=== PATIENT | female | born 1975 | race Caucasian/White ===

== ENCOUNTER 2016-05-30 12:03 | Emergency (ER) | payer BC ==
[~2016-05-30] VITALS: Ht 162.6 cm; Wt 68.0 kg
[~2016-05-30 12:03] MED LIST: HYDR-3533 PO
[2016-05-30 12:14] VITALS: BP 131/86; PULSE 114; RESP 16; TEMP 98.8; O2SAT 98
[2016-05-30 12:25] LABS: GLUCOSE,URINE NEG (NEG); KETONE, URINE NEG (NEG); NITRITE,URINE NEG (NEG)
--- NOTE | 2016-05-30 12:28 | PD ---
HPI . UTI since Friday Chief Complaint: Complaint Time Seen by Provider: 12:27 Travel History International Travel<30 days: No Contact w/Intl Traveler<30days: No Traveled to known affect area: No History of Present Illness HPI 40-year-old female with no significant past medical history here with complaints of urinary tract infection symptoms since Friday. Patient initially started with some frequency and decided to take Azo, without relief. She has tried to deal with her symptoms at home, but is now complaining of right flank pain. She admits to increased urinary frequency with dribbles of urine. She denies any dysuria. She denies any fever or chills. She has no other complaints. PFSH Past Medical History Hx Anticoagulant Therapy: Yes Cardiovascular Problems: Yes Diminished Hearing: No Genitourinary: Yes (KIDNEY INFECTION- FEB 2007) Kidney Stones: Yes (2006) Immunizations Current: Yes ?: Not : 2 Para: 2 Tubal Ligation: Yes Past Surgical History Section: Yes (2000) Social History Alcohol Use: Yes (occasionally) Tobacco Use: No Substance Use: No Allergies-Medications (Allergen,Severity, Reaction): Coded Allergies: Sulfa (Verified Allergy, Intermediate, RASH, 05/30/16) Reported Meds & Prescriptions Reported Meds & Active Scripts Active Pyridium (Phenazopyridine HCl) 100 Mg Tab 100 Mg PO Q8H PRN 3 Days Cipro (Ciprofloxacin HCl) 500 Mg Tab 500 Mg PO BID Review of Systems General / Constitutional: No: Fever Eyes: No: Visual changes HENT: No: Headaches Cardiovascular: No: Chest Pain or Discomfort Respiratory: No: Shortness of Breath Gastrointestinal: No: Abdominal Pain Genitourinary: Positive: Frequency, Dribbling, No: Dysuria Musculoskeletal: No: Pain Skin: No Rash Neurologic: No: Weakness Psychiatric: No: Depression Endocrine: No: Polydipsia Hematologic/Lymphatic: No: Easy Bruising Physical Exam Narrative GENERAL: AAO x 3, no acute distress, Well-nourished, well-developed patient. SKIN: Warm and dry. No visible rashes or bruising. HEAD: Normocephalic and atraumatic. EYES: No scleral icterus. No injection or drainage. ENT: No nasal drainage noted. Mucous membranes pink. Airway patent. NECK: Supple, trachea midline. No JVD. CARDIOVASCULAR: Regular rate and rhythm without murmurs, gallops, or rubs. RESPIRATORY: Breath sounds equal bilaterally. No accessory muscle use. No rhonchi or rales. GASTROINTESTINAL: Abdomen soft, nondistended. There is some right sided CVA tenderness and suprapubic tenderness. Otherwise unremarkable EXTREMITIES: No cyanosis or edema. BACK: Nontender without obvious deformity. No CVA tenderness. PSYCH: AAO x 3, normal affect. Data Data Last Documented VS Vital Signs Date Time Temp Pulse Resp B/P Pulse Ox O2 Delivery O2 Flow Rate FiO2 05/30/16 12:14 98.8 114 16 131/86 98 Orders Urinalysis - C+S If Indicated (05/30/16 12:13) Ed Urine Pregnancytest Poc (05/30/16 12:13) Urine Culture (05/30/16 12:15) Us Kidney/Renal/Bladder (05/30/16 12:45) Ibuprofen (Motrin) (05/30/16 13:15) Labs Laboratory Tests Test 05/30/16 12:15 Urine Collection Type CLEAN CATCH Urine Color YELLOW Urine Turbidity SLIGHT Urine pH 6.0 Urine Specific [place] 1.021 Urine Protein 30 mg/dL Urine Glucose (UA) NEG mg/dL Urine Ketones NEG mg/dL Urine Occult Blood MOD Urine Nitrite NEG Urine Bilirubin NEG Urine Leukocyte Esterase TRACE Urine RBC 15-19 /hpf Urine WBC 25-49 /hpf Urine WBC Clumps MOD Urine Squamous Epithelial > 8 /hpf Cells Microscopic Urinalysis Comment CULTURE INDICATED Urine Collection Time 12:15 [facility] Medical Decision Making Medical Screen Exam Complete: Yes Emergency Medical Condition: Yes Medical Record Reviewed: Yes Differential Diagnosis UTI, pyelonephritis, less likely nephrolithiasis Narrative Course 40-year-old female with no significant past medical history here with complaints of urinary tract infection symptoms since Friday. Patient initially started with some frequency and decided to take Azo, without relief. She has tried to deal with her symptoms at home, but is now complaining of right flank pain. She admits to increased urinary frequency with dribbles of urine. She denies any dysuria. She denies any fever or chills. She has no other complaints. Patient seen and examined. UA ordered. She is allergic to sulfa. US appreciated: no hydronephrosis. Treating for UTI and possible Pyelonephritis Patient verbalized understanding of instructions, questions were answered, and thanked me for their care. I advised them if their condition worsens, please return to the nearest emergency room for further care. Diagnosis Primary Impression: Urinary tract infection Qualified Code: N30.00 - Acute cystitis without hematuria Additional Impression: Pyelonephritis Patient Instructions: Dysuria (ED), General Instructions Additional Instructions: Please return to emergency department if your symptoms return or worsen. Follow up with your primary care provider. Take medications as prescribed. Follow up with your primary care provider in about 10 days after completing antibiotics to make sure this infection has resolved. Stay hydrated. Take ibuprofen or tylenol as needed for pain Med/Other Pt SpecificInfo: Prescription(s) given Scripts Phenazopyridine (Pyridium)100 Mg [id number] Mg PO Q8H PRN (DYSURIA) 3 Days Ref 0 Prov:Earnest Conte MD 05/30/16 Ciprofloxacin (Cipro)500 Mg [id number] Mg PO BID #14 TAB Prov:Earnest Conte MD 05/30/16 Disposition: 01 DISCHARGE HOME Condition: Stable Sara May May 30, 2016 12:28
[2016-05-30 12:31] LABS: BLOOD, URINE MOD (NEG); METHOD OF COLLECTION CLEAN CATCH; URINE COLOR YELLOW (YELLW/STRAW)
[2016-05-30 12:32] LABS: COMMENT (UR) CULTURE INDICATED; CULTURE IF INDICATED CULTURE INDICATED; RBC, URINE 15-19 /hpf (0-3); SQUAMOUS EPITHELIAL CELL URINE > 8 /hpf (0-5)
[2016-05-30] MEDS ORDERED: CIPR-9 PO (13:11)
[2016-05-30] MEDS ORDERED: PHEN0.4T PO (13:11)
--- NOTE | 2016-05-30 13:12 | PD ---
Data Data Last Documented VS Vital Signs Date Time Temp Pulse Resp B/P Pulse Ox O2 Delivery O2 Flow Rate FiO2 05/30/16 12:14 98.8 114 16 131/86 98 Orders Urinalysis - C+S If Indicated (05/30/16 12:13) Ed Urine Pregnancytest Poc (05/30/16 12:13) Urine Culture (05/30/16 12:15) Us Kidney/Renal/Bladder (05/30/16 12:45) Ibuprofen (Motrin) (05/30/16 13:15) Labs Laboratory Tests Test 05/30/16 12:15 Urine Collection Type CLEAN CATCH Urine Color YELLOW Urine Turbidity SLIGHT Urine pH 6.0 Urine Specific [place] 1.021 Urine Protein 30 mg/dL Urine Glucose (UA) NEG mg/dL Urine Ketones NEG mg/dL Urine Occult Blood MOD Urine Nitrite NEG Urine Bilirubin NEG Urine Leukocyte Esterase TRACE Urine RBC 15-19 /hpf Urine WBC 25-49 /hpf Urine WBC Clumps MOD Urine Squamous Epithelial > 8 /hpf Cells Microscopic Urinalysis Comment CULTURE INDICATED Urine Collection Time 12:15 MDM Supervised Visit with KELSEY: Yes Narrative Course I, Dr. Conte, have reviewed the advance practice practitioner's documentation and am in agreement, met with the patient face to face, made the diagnosis, and the medical decision making was done by me. *My assessment and Findings: Patient has UTI, afebrile, does have CVA tenderness on the right. History of kidney stones. Ultrasound examination of her renal system shows no hydronephrosis. Symptoms consistent with pyelonephritis and will be treated on an outpatient basis as she appears well. Diagnosis Primary Impression: Urinary tract infection Qualified Code: N30.00 - Acute cystitis without hematuria Additional Impression: Pyelonephritis Patient Instructions: General Instructions Additional Instruction: Please return to emergency department if your symptoms return or worsen. Follow up with your primary care provider. Take medications as prescribed. Follow up with her primary care provider in about 10 days after completing antibiotics to make sure this infection has resolved. Stay hydrated. Scripts Phenazopyridine (Pyridium)100 Mg [id number] Mg PO Q8H PRN (DYSURIA) 3 Days Ref 0 Prov:Earnest Conte MD 05/30/16 Ciprofloxacin (Cipro)500 Mg [id number] Mg PO BID #14 TAB Prov:Earnest Conte MD 05/30/16 Disposition: 01 DISCHARGE HOME Condition: Stable Earnest Conte MD May 30, 2016 13:12
[2016-05-30] MEDS ORDERED: IBUPROFEN 600 MG TAB PO ONE (13:15)
--- NOTE | 2016-05-30 15:04 | RADHPO ---
EXAM DATE/TIME: 05/30/2016 14:04 [facility] COMPARISON: No previous studies available for comparison. INDICATIONS : Flank pain. MEDICAL HISTORY : Kidney stones. UTI. SURGICAL HISTORY : Tubal ligation. section. Right knee surgery. ENCOUNTER: Initial ACUITY: 1 day PAIN SCORE: 2/10 LOCATION: Bilateral flank MEASUREMENTS: RIGHT KIDNEY: 12.4 x 5.6 x 5.1 cm LEFT KIDNEY: 9.9 x 4.4 x 4.5 cm FINDINGS: RIGHT KIDNEY: Renal cortex is normal in thickness and echotexture. No hydronephrosis, stone, or mass. LEFT KIDNEY: Renal cortex is normal in thickness and echotexture. No hydronephrosis, stone, or mass. BLADDER: Within normal limits given the degree of distension. CONCLUSION: 1. Prominent renal sinus fat bilaterally. No definite calculus. No hydronephrosis. Bladder unremarkab le. Farooq Santoyo MD on May 30, 2016 at 14:59 Board Certified Radiologist. This report was verified electronically.
== END 2016-05-30 15:13 | disposition home or self-care (01) ==
LOC: PHEFT 12:03
DX: N30.00 Acute cystitis without hematuria (principal); N12 Tubulo-interstitial nephritis, not specified as acute or chronic; B96.20 Unspecified Escherichia coli [E. coli] as the cause of diseases classified elsewhere; Z79.01 Long term (current) use of anticoagulants; Z86.79 Personal history of other diseases of the circulatory system; Z87.448 Personal history of other diseases of urinary system
CPT/HCPCS: 76775; 81001; 84703; 87077; 87086; 87186

== ENCOUNTER 2016-10-02 13:52 | Emergency (ER) | payer BC ==
[~2016-10-02] VITALS: Ht 162.6 cm; Wt 74.0 kg
[~2016-10-02 13:52] MED LIST changes: +CIPR-9 PO; -HYDR-3533 PO; +PHEN0.4T PO
[2016-10-02 13:59] VITALS: BP 141/97; PULSE 115; RESP 16; TEMP 99.1; O2SAT 99
[2016-10-02 15:45] VITALS: BP 139/81; PULSE 108; RESP 16; O2SAT 99
[2016-10-02] MEDS ORDERED: ONDANSETRON HCL 4 MG/2 ML VIAL IV PUSH ONE (16:00)
[2016-10-02] MEDS ORDERED: SODIUM CHLOR 0.9% 1000 ML INJ 1,000 ML IV ONE (16:00)
[2016-10-02] MEDS ORDERED: HYDROmorphone HCL PF 1 MG/ML VIAL IV PUSH ONE (16:00)
--- NOTE | 2016-10-02 16:00 | PD ---
HPI Chief Complaint: Flank/Kidney Pain Time Seen by Provider: 15:47 Travel History International Travel<30 days: No Contact w/Intl Traveler<30days: No Traveled to known affect area: No History of Present Illness HPI This 40-year-old female is complaining of right flank pain. She started feeling sick over the weekend. She thought she was coming down with a urinary tract infection. She was having some burning with urination and frequency. She took some Azo. She then started having pain in the right flank area and also the right mid abdomen. She thinks she had a fever this morning. She woke up drenched in sweat. She has had urinary tract infections in the past as well as kidney stones. She says her last kidney stone was 6 years ago. Review of previous charts shows that she had an ultrasound in May of this year which did not show any hydronephrosis or stones seen. PFSH Past Medical History Hx Anticoagulant Therapy: Yes Cardiovascular Problems: Yes Diminished Hearing: No Genitourinary: Yes (KIDNEY INFECTION- FEB 2007) Kidney Stones: Yes (2006) Immunizations Current: Yes Influenza Vaccination: No ?: Not LMP: 09/24/2016 : 2 Para: 2 Tubal Ligation: Yes Past Surgical History Section: Yes (2000) Social History Alcohol Use: Yes (occasionally) Tobacco Use: No Substance Use: No Allergies-Medications (Allergen,Severity, Reaction): Coded Allergies: Sulfa (Verified Allergy, Intermediate, RASH, 10/02/16) Reported Meds & Prescriptions Reported Meds & Active Scripts Active Zofran Odt (Ondansetron Odt) 4 Mg Tab 4 Mg SL Q8HR PRN Lortab (Hydrocodone-Acetaminophen) 7.5-325 Mg Tab 1 Tab PO Q4H PRN Keflex (Cephalexin) 500 Mg Capsule 500 Mg PO QID 10 Days Pyridium (Phenazopyridine HCl) 100 Mg Tab 100 Mg PO Q8H PRN 3 Days Cipro (Ciprofloxacin HCl) 500 Mg Tab 500 Mg PO BID Review of Systems General / Constitutional: Positive: Chills Eyes: No: Diploplia, Blurred Vision HENT: No: Headaches, Vertigo Cardiovascular: No: Chest Pain or Discomfort, Palpitations Respiratory: No: Cough Gastrointestinal: Positive: Nausea Genitourinary: Positive: Urgency, Frequency, Flank Pain Musculoskeletal: No: Myalgias, Arthralgias Skin: No Rash, No Itching Neurologic: No: Weakness Psychiatric: No: Depression Endocrine: No: Heat Intolerance, Cold Intolerance Hematologic/Lymphatic: No: Easy Bruising Physical Exam Narrative GENERAL: Well-developed female SKIN: Focused skin assessment warm/dry. HEAD: Atraumatic. Normocephalic. EYES: Pupils equal and round. No scleral icterus. No injection or drainage. ENT: No nasal bleeding or discharge. Mucous membranes pink and moist. NECK: Trachea midline. No JVD. CARDIOVASCULAR: Regular rate and rhythm. No murmur appreciated. RESPIRATORY: No accessory muscle use. Clear to auscultation. Breath sounds equal bilaterally. GASTROINTESTINAL: Abdomen soft, some right midabdominal tenderness without guarding or rigidity, nondistended. Hepatic and splenic margins not palpable. There is right CVA tenderness MUSCULOSKELETAL: No obvious deformities. No clubbing. No cyanosis. No edema. NEUROLOGICAL: Awake and alert. No obvious cranial nerve deficits. Motor grossly within normal limits. Normal speech. PSYCHIATRIC: Appropriate mood and affect; insight and judgment normal. Data Data Last Documented VS Vital Signs Date Time Temp Pulse Resp B/P Pulse Ox O2 Delivery O2 Flow Rate FiO2 10/02/16 16:37 18 10/02/16 15:45 108 139/81 99 Room Air 10/02/16 13:59 99.1 Orders Urinalysis - C+S If Indicated (10/02/16 15:31) Ed Urine Pregnancytest Poc (10/02/16 15:31) Complete Blood Count With Diff (10/02/16 15:54) Comprehensive Metabolic Panel (10/02/16 15:54) Sodium Chlor 0.9% 1000 Ml Inj (Ns 1000 M (10/02/16 16:00) Ondansetron Inj (Zofran Inj) (10/02/16 16:00) Hydromorphone Pf Inj (Dilaudid Pf Inj) (10/02/16 16:00) Urine Culture (10/02/16 15:30) Ceftriaxone Inj (Rocephin Inj) (10/02/16 16:30) Labs Laboratory Tests Test 10/02/16 10/02/16 15:30 16:00 Urine Color YELLOW Urine Turbidity CLOUDY Urine pH 6.5 Urine Specific [place] 1.018 Urine Protein 30 mg/dL Urine Glucose (UA) NEG mg/dL Urine Ketones 15 mg/dL Urine Occult Blood SMALL Urine Nitrite NEG Urine Bilirubin NEG Urine Leukocyte Esterase SMALL Urine RBC 10-14 /hpf Urine WBC 25-49 /hpf Urine WBC Clumps FEW Urine Squamous Epithelial 6-8 /hpf Cells Urine Bacteria MOD /hpf Urine Mucus FEW /lpf Microscopic Urinalysis Comment CULTURE INDICATED White Blood Count 13.8 TH/MM3 Red Blood Count 5.01 MIL/MM3 Hemoglobin 14.8 GM/DL Hematocrit 45.3 % Mean Corpuscular Volume 90.3 FL Mean Corpuscular Hemoglobin 29.4 PG Mean Corpuscular Hemoglobin 32.6 % Concent Red Cell Distribution Width 13.8 % Platelet Count 180 TH/MM3 Mean Platelet Volume 8.6 FL Neutrophils (%) (Auto) 80.7 % Lymphocytes (%) (Auto) 7.6 % Monocytes (%) (Auto) 11.0 % Eosinophils (%) (Auto) 0.1 % Basophils (%) (Auto) 0.6 % Neutrophils # (Auto) 11.2 TH/MM3 Lymphocytes # (Auto) 1.0 TH/MM3 Monocytes # (Auto) 1.5 TH/MM3 Eosinophils # (Auto) 0.0 TH/MM3 Basophils # (Auto) 0.1 TH/MM3 CBC Comment DIFF FINAL Differential Comment Sodium Level 136 MEQ/L Potassium Level 4.0 MEQ/L Chloride Level 100 MEQ/L Carbon Dioxide Level 27.6 MEQ/L Anion Gap 8 MEQ/L Blood Urea Nitrogen 7 MG/DL Creatinine 0.88 MG/DL Estimat Glomerular Filtration 71 ML/MIN Rate Random Glucose 110 MG/DL Calcium Level 9.3 MG/DL Total Bilirubin 0.6 MG/DL Aspartate Amino Transf 15 U/L (AST/SGOT) Alanine Aminotransferase 17 U/L (ALT/SGPT) Alkaline Phosphatase 89 U/L Total Protein 7.7 GM/DL Albumin 3.5 GM/DL [facility] Medical Decision Making Medical Screen Exam Complete: Yes Emergency Medical Condition: Yes Medical Record Reviewed: Yes Differential Diagnosis Differential includes renal colic, pyelonephritis Narrative Course Urinalysis shows 25-49 white cells. Hemoglobin is 14 with a white count of 13.8. Urine is 7 with creatinine of 0.88 this is most consistent with pyelonephritis. She'll be given an initial dose of Rocephin. She is allergic to sulfa. She'll be released on Keflex Diagnosis Primary Impression: Acute pyelonephritis Additional Instructions: Drink plenty of fluids Scripts Ondansetron Odt (Zofran Odt)4 Mg Tab4 Mg SL Q8HR PRN (Nausea/Vomiting) #6 TAB Ref 0 Prov:Abelardo Branham MD 10/02/16 Hydrocodone-Acetaminophen (Lortab)7.5-325 Mg Tab1 Tab PO Q4H PRN (PAIN) #20 TAB Ref 0 Prov:Abelardo Branham MD 10/02/16 Cephalexin (Keflex)500 Mg [id number] Mg PO QID 10 Days Ref 0 Prov:Abelardo Branham MD 10/02/16 Disposition: 01 DISCHARGE HOME Condition: Stable Abelardo Branham MD Oct 02, 2016 16:00
[2016-10-02 16:06] LABS: BLOOD, URINE SMALL (NEG); GLUCOSE,URINE NEG (NEG); KETONE, URINE 15 mg/dL (NEG); NITRITE,URINE NEG (NEG); PH, URINE 6.5 (5.0-8.5)
[2016-10-02 16:11] LABS: URINE COLOR YELLOW (YELLW/STRAW)
[2016-10-02 16:12] LABS: MUCUS URINE FEW /lpf (OCC)
[2016-10-02 16:13] LABS: BACTERIA, URINE MOD /hpf; COMMENT (UR) CULTURE INDICATED; CULTURE IF INDICATED CULTURE INDICATED
[2016-10-02 16:15] LABS: AUTOMATED NEUTROPHIL # 11.2 TH/MM3 (1.8-7.7); BASOPHIL # 0.1 TH/MM3 (0-0.2); BASOPHIL % 0.6 % (0.0-2.0); EOSINOPHIL % 0.1 % (0.0-4.0); HEMATOCRIT 45.3 % (35.0-46.0); LYMPH % 7.6 % (9.0-44.0); MEAN CELL VOLUME 90.3 FL (80.0-100.0); MEAN CORPUSCULAR HEMOGLOBIN 29.4 PG (27.0-34.0); MEAN CORPUSCULAR HGB CONC 32.6 % (32.0-36.0); NEUT % 80.7 % (16.0-70.0); PLATELET COUNT 180 TH/MM3 (150-450); RED BLOOD COUNT 5.01 MIL/MM3 (4.00-5.30); RED CELL DISTRIBUTION WIDTH 13.8 % (11.6-17.2); WHITE BLOOD COUNT 13.8 TH/MM3 (4.0-11.0)
[2016-10-02 16:16] LABS: HEMO FLAGS DIFF FINAL
[2016-10-02 16:17] LABS: CHLORIDE 100 MEQ/L (98-107); SODIUM (NA) 136 MEQ/L (136-145)
[2016-10-02 16:21] LABS: ANION GAP 8 MEQ/L (5-15); BICARBONATE 27.6 MEQ/L (21.0-32.0); BLOOD UREA NITROGEN 7 MG/DL (7-18)
[2016-10-02 16:24] LABS: ALT (GPT) 17 U/L (10-53); AST (GOT) 15 U/L (15-37); GLOMERULAR FILTRATION RATE 71 ML/MIN (>89)
[2016-10-02 16:25] LABS: TOTAL BILIRUBIN ADULT 0.6 MG/DL (0.2-1.0)
[2016-10-02 16:27] LABS: ALKALINE PHOSPHATASE 89 U/L (45-117)
[2016-10-02] MEDS ORDERED: cefTRIAXone INJ 2,000 MG in SODIUM CHLORIDE 0.9% INJ 100 ML IV ONE (16:30)
[2016-10-02] MEDS ORDERED: CEPH-460 PO (16:34)
[2016-10-02] MEDS ORDERED: HYDR-3534 PO (16:34)
[2016-10-02] MEDS ORDERED: ZOFR4TAB3 SL (16:34)
[2016-10-02 17:09] VITALS: BP 128/67; PULSE 88; RESP 16; O2SAT 98
== END 2016-10-02 17:44 | disposition home or self-care (01) ==
LOC: PHED 13:52
DX: N10 Acute pyelonephritis (principal); B96.20 Unspecified Escherichia coli [E. coli] as the cause of diseases classified elsewhere
CPT/HCPCS: 80053; 81001; 84703; 85025; 87077; 87086; 87186; 96365; 96375; 99284; J0696; J1170; J2405; J7030

== ENCOUNTER 2016-11-21 08:05 | Emergency (ER) | payer BC ==
[~2016-11-21] VITALS: Ht 162.6 cm; Wt 74.6 kg
[~2016-11-21 08:05] MED LIST changes: +CEPH-460 PO; +HYDR-3534 PO; +ZOFR4TAB3 SL
[2016-11-21 08:24] VITALS: BP 123/89; PULSE 78; RESP 16
--- NOTE | 2016-11-21 08:30 | PD ---
HPI Chief Complaint: Back/ Neck Pain or Injury Time Seen by Provider: 08:22 Travel History International Travel<30 days: No Contact w/Intl Traveler<30days: No Traveled to known affect area: No History of Present Illness HPI 41-year-old female complains of low back pain and left leg pain. Patient states that she has intermittent swelling of lower extremity recently. Patient started having low back pain with pain radiation to left complex since yesterday. Patient denies dysuria or frequency. Patient denies any vaginal discharge or bleeding. Patient denies any fever chills. Patient has history recurrent back pain in the past. [facility] Past Medical History Medical History: Denies Significant Hx Hx Anticoagulant Therapy: Yes Cardiovascular Problems: Yes Diminished Hearing: No Genitourinary: Yes (KIDNEY INFECTION- FEB 2007) Kidney Stones: Yes (2006) Immunizations Current: Yes ?: Not : 2 Para: 2 Tubal Ligation: Yes Past Surgical History Section: Yes (2000) Social History Alcohol Use: Yes (BEER DAILY) Tobacco Use: No Substance Use: No Allergies-Medications (Allergen,Severity, Reaction): Coded Allergies: Sulfa (Sulfonamide Antibiotics) (Unverified Allergy, Intermediate, RASH, ) Reported Meds & Prescriptions Reported Meds & Active Scripts Active No Active Prescriptions or Reported Medications Review of Systems General / Constitutional: No: Fever Eyes: No: Visual changes HENT: No: Headaches Cardiovascular: No: Chest Pain or Discomfort Respiratory: No: Shortness of Breath Gastrointestinal: No: Abdominal Pain Genitourinary: No: Dysuria Musculoskeletal: No: Pain Skin: No Rash Neurologic: No: Weakness Psychiatric: No: Depression Endocrine: No: Polydipsia Hematologic/Lymphatic: No: Easy Bruising Physical Exam Narrative GENERAL: Well-nourished, well-developed patient. SKIN: Focused skin assessment warm/dry. HEAD: Normocephalic. EYES: No scleral icterus. No injection or drainage. NECK: Supple, trachea midline. No JVD or lymphadenopathy. CARDIOVASCULAR: Regular rate and rhythm without murmurs, gallops, or rubs. RESPIRATORY: Breath sounds equal bilaterally. No accessory muscle use. GASTROINTESTINAL: Abdomen soft, non-tender, nondistended. MUSCULOSKELETAL: No cyanosis, or edema. BACK: Moderate tenderness on palpation lumbar area, without obvious deformity. No CVA tenderness. Positive straight leg raising left leg. Neurologic exam normal. Data Data Last Documented VS Vital Signs Date Time Temp Pulse Resp B/P (MAP) Pulse Ox O2 Delivery O2 Flow Rate FiO2 11/21/16 08:24 16 11/21/16 08:24 78 123/89 (100) Orders Orders Urinalysis - C+S If Indicated (11/21/16 08:26) Spine, Lumbar - Ltd (Ap & Lat) (11/21/16 08:27) Us Leg Venous Doppler (11/21/16 08:27) Urine Culture (11/21/16 08:30) Ketorolac Inj (Toradol Inj) (11/21/16 09:30) Labs Laboratory Tests Test 11/21/16 08:30 Urine Collection Type CLEAN CATCH Urine Color YELLOW Urine Turbidity SLIGHT Urine pH 5.5 Urine Specific [place] 1.021 Urine Protein NEG mg/dL Urine Glucose (UA) NEG mg/dL Urine Ketones NEG mg/dL Urine Occult Blood TRACE Urine Nitrite NEG Urine Bilirubin NEG Urine Leukocyte Esterase NEG Urine RBC 0-3 /hpf Urine WBC 0-2 /hpf Urine Squamous Epithelial Cells > 8 /hpf Urine Bacteria MOD /hpf Microscopic Urinalysis Comment CULTURE INDICATED Urine Collection Time 08:30 [facility] Medical Decision Making Medical Screen Exam Complete: Yes Emergency Medical Condition: Yes Interpretation(s) Last Impressions Lumbar Spine X-Ray 11/21/16826 Signed Impressions: Service Date/Time: , November 21, 2016 08:46 - CONCLUSION: 1. Mild scoliosis. 2. No underlying bony abnormality. 3. Mild degenerative disc change at the L5-S1 level. Joshua Stewart MD 9:29 AM. Doppler study left leg negative for DVT. UA is negative. Differential Diagnosis Differential diagnosis including sciatica, DVT, radiculopathy. Narrative Course 41-year-old female with low back pain and left leg pain. Diagnosis Primary Impression: Sciatica Qualified Codes: M54.32 - Sciatica, left side Patient Instructions: General Instructions Additional Instructions: Take medication as needed for pain. Follow-up with personal physician. Return if worse. Med/Other Pt SpecificInfo: Prescription(s) given Scripts Tramadol (Ultram) 50 Mg Tab 50 MG PO Q6H Y for PAIN, #30 TAB 0 Refills Prov: Trent Olivarez MD 8/31/17 Meloxicam (Mobic) 15 Mg Tab 15 MG PO DAILY for Pain, #20 TAB 0 Refills Prov: Trent Olivarez MD 11/21/16 Disposition: 01 DISCHARGE HOME Condition: Stable Trent Olivarez MD Nov 21, 2016 08:29
[2016-11-21 08:41] LABS: BLOOD, URINE TRACE (NEG); GLUCOSE,URINE NEG (NEG); KETONE, URINE NEG (NEG); NITRITE,URINE NEG (NEG); PH, URINE 5.5 (5.0-8.5)
[2016-11-21 08:50] LABS: METHOD OF COLLECTION CLEAN CATCH; URINE COLOR YELLOW (YELLW/STRAW)
[2016-11-21 08:51] LABS: BACTERIA, URINE MOD /hpf; COMMENT (UR) CULTURE INDICATED; CULTURE IF INDICATED CULTURE INDICATED; RBC, URINE 0-3 /hpf (0-3); SQUAMOUS EPITHELIAL CELL URINE > 8 /hpf (0-5); WBC, URINE 0-2 /hpf (0-5)
--- NOTE | 2016-11-21 09:23 | RADRPT ---
EXAM DATE/TIME: 11/21/2016 08:46 [facility] COMPARISON: No previous studies available for comparison. INDICATIONS : Low back pain radiating down left leg with no known injury. MEDICAL HISTORY : Renal calculi. SURGICAL HISTORY : Tubal ligation. section. Right knee. ENCOUNTER: Initial ACUITY: 2 days PAIN SCORE: 7/10 LOCATION: lumbar spine FINDINGS: Two view examination was performed. There are five non-rib bearing vertebral bodies. The vertebral bodies are in normal alignment without evidence of subluxation or scoliosis. There is mild degenerati ve change at the L5-S1 level with mild disc space narrowing and hypertrophic change. The pedicles are intact. Bony mineralization is normal. No fracture is identified. There is mild scoliosis. CONCLUSION: 1. Mild scoliosis. 2. No underlying bony abnormality. 3. Mild degenerative disc change at the L5-S1 level. Joshua Stewart MD on November 21, 2016 at 9:21 Board Certified Radiologist. This report was verified electronically.
--- NOTE | 2016-11-21 09:29 | RADRPT ---
EXAM DATE/TIME: 11/21/2016 08:48 [facility] COMPARISON: US LEG LEFT VENOUS DOPPLER, November 29, 2014, 14:23. INDICATIONS : Left leg pain. MEDICAL HISTORY : Renal calculi. Left leg pain. SURGICAL HISTORY : Tubal ligation. section. Right knee surgery. ENCOUNTER: Initial ACUITY: 3 days PAIN SCORE: 4/10 LOCATION: Left leg. TECHNIQUE: Venous ultrasound of the leg was performed from the inguinal ligament to the proximal calf. Real-mohamud e, color Doppler and spectral tracing, compression and augmentation techniques were used. FINDINGS: There is normal compressibility of the deep venous system from the inguinal region to the proximal ca lf. No echogenic clot is seen in the lumen of the common femoral, femoral, popliteal, and posterior tibial veins. There is a normal response of the venous system to proximal and distal augmentation an d respiration. CONCLUSION: Negative exam with no evidence of deep venous thrombosis. oJshua Stewart MD on November 21, 2016 at 9:27 Board Certified Radiologist. This report was verified electronically.
[2016-11-21] MEDS ORDERED: KETOROLAC TROMETHAMINE 60 MG/2 ML (IM) VIAL IM ONE (09:30)
[2016-11-21] MEDS ORDERED: MOBI15TA PO (09:31)
[2016-11-21] MEDS ORDERED: ULTR50TA5 PO (09:32)
[2016-11-21 10:01] VITALS: BP 122/75
== END 2016-11-21 10:02 | disposition home or self-care (01) ==
LOC: PHED 08:05
DX: M54.32 Sciatica, left side (principal); M79.605 Pain in left leg
CPT/HCPCS: 72100; 81001; 87086; 93971; 96372; 99285; J1885

== ENCOUNTER 2016-12-25 10:17 | Emergency (ER) | payer SELFPAY ==
[~2016-12-25] VITALS: Ht 162.6 cm; Wt 72.0 kg
[~2016-12-25 10:17] MED LIST changes: -CEPH-460 PO; -CIPR-9 PO; -HYDR-3534 PO; +MOBI15TA PO; -PHEN0.4T PO; +ULTR50TA5 PO; -ZOFR4TAB3 SL
[2016-12-25 10:24] VITALS: BP 128/82; PULSE 75; RESP 16; TEMP 99; O2SAT 98
[2016-12-25] MEDS ORDERED: KETOROLAC TROMETHAMINE 60 MG/2 ML (IM) VIAL IM ONE (11:00)
[2016-12-25] MEDS ORDERED: ORPHENADRINE INJ 60 MG/2 ML AMP IM ONE (11:00)
--- NOTE | 2016-12-25 11:04 | PD ---
HPI Chief Complaint: Pain: Acute or Chronic Time Seen by Provider: 10:37 Travel History International Travel<30 days: No Contact w/Intl Traveler<30days: No Traveled to known affect area: No History of Present Illness HPI This is a 41-year-old female who presents to the emergency department with pain in her right knee, constant, moderate severity, that started overnight worse on the outer aspect of the knee, limiting her ability to walk. She says the pain shoots down from her knee down to her calf. She's not sure if she's had any swelling. She's had 2 surgeries in that knee before in the setting of a prior patellar dislocation. She denies any injury. PFSH Past Medical History Hx Anticoagulant Therapy: Yes Cardiovascular Problems: Yes Diminished Hearing: No Genitourinary: Yes (KIDNEY INFECTION- FEB 2007) Kidney Stones: Yes (2006) Immunizations Current: Yes Influenza Vaccination: No ?: Not : 2 Para: 2 Tubal Ligation: Yes Past Surgical History Section: Yes (2000) Social History Alcohol Use: Yes (BEER DAILY) Tobacco Use: No Substance Use: No Allergies-Medications (Allergen,Severity, Reaction): Coded Allergies: Sulfa (Sulfonamide Antibiotics) (Unverified Allergy, Intermediate, RASH, 12/25/16) Reported Meds & Prescriptions Reported Meds & Active Scripts Active No Active Prescriptions or Reported Medications Review of Systems Except as stated in HPI: all other systems reviewed are Neg Physical Exam Narrative GENERAL:Well appearing, no acute distress SKIN: Focused skin assessment warm and dry. HEAD: Atraumatic. Normocephalic. EYES: Pupils equal and round. No injection or drainage. ENT: Moist mucous membranes NECK: Trachea midline. CARDIOVASCULAR: Regular rate and rhythm. No murmur appreciated. RESPIRATORY: Clear to auscultation. Breath sounds equal bilaterally. GASTROINTESTINAL: Abdomen soft, non-tender, nondistended. MUSCULOSKELETAL: Pain with range of motion of the right knee, focally tender on the lateral aspect of the right knee. Tender to palpation along the right calf. Old surgical scar in the knee with no obvious effusion. NEUROLOGICAL: Awake and alert. No obvious cranial nerve deficits. Moving all extremities. PSYCHIATRIC: Appropriate mood and affect; insight and judgment normal. Data Data Last Documented VS Vital Signs Date Time Temp Pulse Resp B/P (MAP) Pulse Ox O2 Delivery O2 Flow Rate FiO2 12/25/16 12:16 15 12/25/16 10:24 99.0 75 128/82 (97) 98 Room Air Orders Orders Knee, Complete (4vws) (12/25/16 ) Orphenadrine Inj (Norflex Inj) (12/25/16 11:00) Ketorolac Inj (Toradol Inj) (12/25/16 11:00) Us Leg Venous Doppler (12/25/16 ) MDM Medical Decision Making Medical Screen Exam Complete: Yes Emergency Medical Condition: Yes Interpretation(s) Afebrile, no tachycardia, normotensive X-ray: mild pyrophosphate arthropathy Differential Diagnosis Knee sprain, patellar dislocation, gout, pseudogout, DVT Narrative Course This is a 41-year-old female who presents to the emergency department with pain in her right knee. She has a history of patellar surgery on that knee in the past. She has a benign exam with a normal neurovascular exam. X-ray demonstrates pyrophosphate crystals and ultrasound for DVT is negative. Patient was given anti-inflammatory, muscle relaxer and steroids in the emergency department. She'll be discharged on a steroid taper and was instructed to follow-up with her orthopedist as an outpatient. Diagnosis Primary Impression: Pseudogout of knee Qualified Codes: M11.261 - Other chondrocalcinosis, right knee Patient Instructions: General Instructions Additional Instructions: If you develop fever, increasing swelling of your knee or inability to walk return to the emergency room. Follow-up with your orthopedic physician as soon as possible. Med/Other Pt SpecificInfo: Prescription(s) given Scripts Ranitidine (Ranitidine) 150 Mg Tab 150 MG PO BID for Heartburn Management, #60 TAB 0 Refills Prov: Kimberly Lee MD 12/25/16 Meloxicam (Meloxicam) 15 Mg Tab 15 MG PO DAILY for Arthritis Pain, #15 TAB 0 Refills Prov: Kimberly Lee MD 12/25/16 Prednisone (48) 5 mg tab Dose Pack (Prednisone (48) 5 mg tab Dose Pack) 5 Mg Dspk 5 MG PO DIRECTED for Inflammation, #1 DSPK 0 Refills Prov: Kimberly Lee MD 12/25/16 Disposition: 01 DISCHARGE HOME Condition: Stable Kimberly Lee MD Dec 25, 2016 11:04
--- NOTE | 2016-12-25 11:24 | RADRPT ---
EXAM DATE/TIME: 12/25/2016 10:59 [facility] COMPARISON: No previous studies available for comparison. INDICATIONS : Right knee pain, no known injury. MEDICAL HISTORY : None. SURGICAL HISTORY : rt knee surgery for dislocation ENCOUNTER: Initial ACUITY: 1 day PAIN SCORE: 10/10 LOCATION: Right knee FINDINGS: There is no evidence of joint effusion or fracture. Mineralization is normal. There is chondrocalcino sis noted with mild associated arthritic changes. CONCLUSION: Mild pyrophosphate arthropathy. No acute bony findings Will Enamorado MD on December 25, 2016 at 11:21 Board Certified Radiologist. This report was verified electronically.
--- NOTE | 2016-12-25 12:04 | RADRPT ---
EXAM DATE/TIME: 12/25/2016 11:43 [facility] COMPARISON: No previous studies available for comparison. INDICATIONS : Right knee pain and swelling. MEDICAL HISTORY : Cardiac disorder. Anticoagulant therapy. Kidney stones. SURGICAL HISTORY : section. Tubal ligation. Right knee surgery. ENCOUNTER: Initial ACUITY: 1 day PAIN SCORE: 5/10 LOCATION: Right leg. TECHNIQUE: Venous ultrasound of the leg was performed from the inguinal ligament to the proximal calf. Real-mohamud e, color Doppler and spectral tracing, compression and augmentation techniques were used. FINDINGS: There is normal compressibility of the deep venous system from the inguinal region to the proximal ca lf. No echogenic clot is seen in the lumen of the common femoral, femoral, popliteal, and posterior tibial veins. There is a normal response of the venous system to proximal and distal augmentation an d respiration. CONCLUSION: No DVT right leg. Murray Barrios MD on December 25, 2016 at 12:02 Board Certified Radiologist. This report was verified electronically.
[2016-12-25 12:16] VITALS: RESP 15
[2016-12-25] MEDS ORDERED: methylPREDNISolone SOD SUCC 125 MG/2 ML VIAL IM ONE (12:30)
[2016-12-25] MEDS ORDERED: MELO-1 PO (12:30)
[2016-12-25] MEDS ORDERED: PRED5PAK2 PO (12:30)
[2016-12-25] MEDS ORDERED: RANI150T PO (12:30)
== END 2016-12-25 12:46 | disposition home or self-care (01) ==
LOC: PHEFT 10:17
DX: M11.261 Other chondrocalcinosis, right knee (principal); M25.561 Pain in right knee
CPT/HCPCS: 73564; 93971; 96372; 99285; J1885; J2360; J2930

== ENCOUNTER 2017-03-23 22:16 | Emergency (ER) | payer SELFPAY ==
[~2017-03-23 22:16] MED LIST changes: +MELO15TA20 PO; -MOBI15TA PO; +PRED5PAK2 PO; +RANI150T PO; -ULTR50TA5 PO
[2017-03-23 22:17] VITALS: O2SAT 100
[2017-03-23] MEDS ORDERED: ceFAZolin 2 GM PREMIX 50 ML ONE (22:20)
[2017-03-23] MEDS ORDERED: DIPHTH/TETANUS/ACEL PERTUSSIS (BOOSTER) 0.5 ML VIAL/PFS IM ONE ×2 (22:21→22:28)
[2017-03-23] MEDS ORDERED: ceFAZolin 2 GM PREMIX 50 ML IV STA (22:28)
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
[2017-03-23 22:44] LABS: AUTOMATED NEUTROPHIL # 3.2 TH/MM3 (1.8-7.7); BASOPHIL % 0.4 % (0.0-2.0); EOSINOPHIL # 0.3 TH/MM3 (0-0.4); EOSINOPHIL % 3.1 % (0.0-4.0); HEMATOCRIT 39.6 % (35.0-46.0); HEMOGLOBIN 13.5 GM/DL (11.6-15.3); LYMPH % 48.8 % (9.0-44.0); LYMPHOCYTE # 4.1 TH/MM3 (1.0-4.8); MEAN CELL VOLUME 90.5 FL (80.0-100.0); MEAN CORPUSCULAR HEMOGLOBIN 30.8 PG (27.0-34.0); MONO % 9.3 % (0.0-8.0); MONOCYTE # 0.8 TH/MM3 (0-0.9); NEUT % 38.4 % (16.0-70.0); PLATELET COUNT 208 TH/MM3 (150-450); RED BLOOD COUNT 4.38 MIL/MM3 (4.00-5.30); RED CELL DISTRIBUTION WIDTH 13.7 % (11.6-17.2); WHITE BLOOD COUNT 8.3 TH/MM3 (4.0-11.0)
[2017-03-23] MEDS ORDERED: ONDANSETRON HCL 4 MG/2 ML VIAL IV PUSH ONE (22:45)
[2017-03-23] MEDS ORDERED: MORPHINE SULFATE 2 MG/ML INJ IV PUSH ONE (22:45)
[2017-03-23] MEDS ORDERED: LIDOCAINE HCL 1% 20 ML VIAL INFIL ONE ×3 (23:00→23:15)
[2017-03-23] MEDS ORDERED: LIDOCAINE HCL 1% 50 ML VIAL INFIL ONE (23:00)
[2017-03-23 23:06] LABS: PROTHROMBIN TIME - PATIENT 10.3 SEC (9.8-11.6)
[2017-03-23 23:09] VITALS: BP 137/81; PULSE 90; RESP 16; O2SAT 99
[2017-03-23 23:10] VITALS: RESP 16; O2SAT 99
--- NOTE | 2017-03-24 00:29 | PD ---
Physical Exam Date Seen by Provider: Mar 24, 2017 Time Seen by Provider: 00:24 Narrative Skin: Patient has 2 lacerations involving the left groin. The first laceration measures 15 cm. The second laceration measures 10 cm. The skin between the 2 lacerations is contused. Skin is appears viable. The subcutaneous tissues are somewhat denuded. No gross nerve or vascular structure injury. Data Data Last Documented VS Vital Signs Date Time Temp Pulse Resp B/P (MAP) Pulse Ox O2 Delivery O2 Flow Rate FiO2 03/23/17 23:10 16 99 03/23/17 23:09 90 03/23/17 22:17 21 Orders Orders Cefazolin 2 Gm Premix (Ancef 2 Gm Premix (03/23/17 22:20) I-Stat Profile (03/23/17 22:20) I-Stat Creatinine (03/23/17 22:20) Complete Blood Count With Diff (03/23/17 22:20) Prothrombin Time / Inr (Pt) (03/23/17 22:20) Act Partial Throm Time (Ptt) (03/23/17 22:20) Type And Screen (03/23/17 22:20) Pelvis, Ap Only (Routine) (03/23/17 22:20) Iv Access Insert/Monitor (03/23/17 22:20) Ecg Monitoring (03/23/17 22:20) Oximetry (03/23/17 22:20) Oxygen Administration (03/23/17 22:20) Qkek-Pkk-Mwlscj (Booster) Inj (Boostrix (03/23/17 22:21) Cefazolin 2 Gm Premix (Ancef 2 Gm Premix (03/23/17 22:28) Yhqw-Qdp-Udtnjb (Booster) Inj (Boostrix (03/23/17 22:28) Morphine Inj (Morphine Inj) (03/23/17 22:45) Ondansetron Inj (Zofran Inj) (03/23/17 22:45) Lidocaine 1% Inj (50 Ml) (Xylocaine 1% I (03/23/17 23:00) Lidocaine 1% Inj (Xylocaine 1% Inj) (03/23/17 23:00) Lidocaine 1% Inj (Xylocaine 1% Inj) (03/23/17 23:00) Lidocaine 1% Inj (Xylocaine 1% Inj) (03/23/17 23:15) Morphine Inj (Morphine Inj) (03/24/17 00:30) Ct Abd/Pel W Iv Contrast(Rout) (03/24/17 00:23) Labs Laboratory Tests Test 03/23/17 22:20 White Blood Count 8.3 TH/MM3 Red Blood Count 4.38 MIL/MM3 Hemoglobin 13.5 GM/DL Bedside Hemoglobin 14.3 G/DL Hematocrit 39.6 % Bedside Hematocrit 42.0 % Mean Corpuscular Volume 90.5 FL Mean Corpuscular Hemoglobin 30.8 PG Mean Corpuscular Hemoglobin Concent 34.0 % Red Cell Distribution Width 13.7 % Platelet Count 208 TH/MM3 Mean Platelet Volume 9.0 FL Neutrophils (%) (Auto) 38.4 % Lymphocytes (%) (Auto) 48.8 % Monocytes (%) (Auto) 9.3 % Eosinophils (%) (Auto) 3.1 % Basophils (%) (Auto) 0.4 % Neutrophils # (Auto) 3.2 TH/MM3 Lymphocytes # (Auto) 4.1 TH/MM3 Monocytes # (Auto) 0.8 TH/MM3 Eosinophils # (Auto) 0.3 TH/MM3 Basophils # (Auto) 0.0 TH/MM3 CBC Comment DIFF FINAL Differential Comment Prothrombin Time 10.3 SEC Prothromb Time International Ratio 1.0 RATIO Activated Partial Thromboplast Time 25.0 SEC Bedside Sodium 136 MMOL/L Bedside Potassium 3.5 MMOL/L Bedside Chloride 98 MMOL/L Bedside Blood Urea Nitrogen 5 MG/DL Bedside Creatinine 1.0 MG/DL Bedside Glucose 127 MG/DL MDM Medical Record Reviewed: Yes Supervised Visit with KELSEY: Yes Differential Diagnosis MDM: High Differential diagnoses: Fracture, sprain, strain, dislocation, contusion, neurovascular injury, concussion injury Narrative Course Patient's wound is copiously irrigated and closed. Retention sutures placed. Procedures Procedure Narrative LACERATION LOCATION: Left groin LENGTH: 15 cm NUMBER OF STITCHES/RAFAELA: 22 REPAIR: The area of the laceration was prepped with Betadine and sterilely draped. The laceration was infiltrated with 1% lidocaine. The wound was copiously irrigated and explored without evidence of foreign body, tendon injury or neurovascular injury. 4-0 Vicryl subcutaneous sutures. The wound was closed using sutures and rafaela. This was a intermediate 2 layer repair. LACERATION LOCATION: Left groin LENGTH: 10 cm NUMBER OF STITCHES/RAFAELA: 13 REPAIR: The area of the laceration was prepped with Betadine and sterilely draped. The laceration was infiltrated with 1% lidocaine. The wound was copiously irrigated and explored without evidence of foreign body, tendon injury or neurovascular injury. The wound was closed using rafaela and 4-0 sutures. This was a intermediate 2 layer repair. Retention sutures were placed across the 2 wounds. A sterile dressing was applied. The patient was advised to keep the dressing clean and dry. Patient tolerated the procedure well. Diagnosis Primary Impression: Laceration of groin Qualified Codes: S31.119A - Laceration without foreign body of abdominal wall , unspecified quadrant without penetration into peritoneal cavity, initial encounter Patient Instructions: General Instructions Additional Instruction: Wound care daily. Return in 2 days for recheck. Suture removal in 14 days. Take medications as directed. Follow-up with local physician. Med/Other Pt SpecificInfo: Prescription(s) given, Wound Care Disposition: 01 DISCHARGE HOME Condition: Stable Farooq Willis Mar 24, 2017 00:29
[2017-03-24] MEDS ORDERED: MORPHINE SULFATE 2 MG/ML INJ IV PUSH ONE (00:30)
[2017-03-24] MEDS ORDERED: IOHEXOL 350 MG/ML 10 ML VIAL (for RAD DIAG) IVCONTRAST ONE (00:58)
--- NOTE | 2017-03-24 01:17 | RADRPT ---
EXAM DATE/TIME: 03/24/2017 00:56 [facility] COMPARISON: No previous studies available for comparison. INDICATIONS : Left groin laceration. Possible foreign body. IV CONTRAST: 95 cc Omnipaque 350 (iohexol) IV ORAL CONTRAST: No oral contrast ingested. RADIATION DOSE: 8.24 CTDIvol (mGy) MEDICAL HISTORY : None SURGICAL HISTORY : None. ENCOUNTER: Initial ACUITY: 1 day PAIN SCALE: 5/10 LOCATION: Left lower quadrant groin TECHNIQUE: Volumetric scanning of the abdomen and pelvis was performed. Using automated exposure control and ad justment of the mA and/or kV according to patient size, radiation dose was kept as low as reasonably achievable to obtain optimal diagnostic quality images. DICOM format image data is available electro nically for review and comparison. FINDINGS: LOWER LUNGS: The visualized lower lungs are clear. LIVER: Homogeneous density without lesion. There is no dilation of the biliary tree. No calcified gallston es. SPLEEN: Normal size without lesion. PANCREAS: Within normal limits. KIDNEYS: Normal in size and shape. There is no mass, stone or hydronephrosis. ADRENAL GLANDS: Within normal limits. VASCULAR: There is no aortic aneurysm. BOWEL/MESENTERY: The stomach, small bowel, and colon demonstrate no acute abnormality. There is no free intraperitone al air or fluid. ABDOMINAL WALL: Within normal limits. RETROPERITONEUM: There is no lymphadenopathy. BLADDER: No wall thickening or mass. REPRODUCTIVE: Within normal limits. INGUINAL: There is no lymphadenopathy or hernia. Skin rafaela are noted involving the left groin. There is subc utaneous air as well as mild stranding of the fat consistent with edema or hematoma. No radiopaque fo reign body observed. The major vascular structures are unremarkable. MUSCULOSKELETAL: Within normal limits for patient age. CONCLUSION: 1. Wound involving the left groin without radiopaque foreign body. Van Luna Jr., MD on March 24, 2017 at 1:11 Board Certified Radiologist. This report was verified electronically.
[2017-03-24] MEDS ORDERED: KETOROLAC TROMETHAMINE 30 MG/ML (IVP) VIAL IV PUSH ONE (01:45)
[2017-03-24] MEDS ORDERED: ACETAMINOPHEN/HYDROcodone 325 MG/5 MG TAB PO ONE (01:45)
[2017-03-24 02:06] VITALS: BP 128/78
[2017-03-25] MEDS ORDERED: MOBI15TA PO (19:35)
[2017-03-25] MEDS ORDERED: CLIN300C5 PO (19:35)
[2017-03-25] MEDS ORDERED: TRAM50 PO (19:36)
== END 2017-03-24 02:08 | disposition home or self-care (01) ==
LOC: NEPI 22:16 → MERGE 22:16 → EDBD 22:16 → NEPE 03-24 02:08
DX: S31.114A Laceration without foreign body of abdominal wall, left lower quadrant without penetration into peritoneal cavity, initial encounter (principal); W39.XXXA Discharge of firework, initial encounter; Z88.2 Allergy status to sulfonamides
CPT/HCPCS: 12036; 72170; 74177; 82435; 82565; 82947; 84132; 84295; 84520; 85025; 85610; 85730; 86850; 86900; 86901; 90471; 90715; 96374; 99285; 99291; E0113; J0690; J2270; J2405; Q9967; G0390

== ENCOUNTER 2017-03-25 17:57 | Emergency (ER) | payer SELFPAY ==
[~2017-03-25] VITALS: Ht 162.6 cm; Wt 74.0 kg
[2017-03-25 18:08] VITALS: BP 166/91; PULSE 92; RESP 16; TEMP 98.8; O2SAT 100
[2017-03-25] MEDS ORDERED: MOBI15TA PO (19:35)
[2017-03-25] MEDS ORDERED: CLIN300C5 PO (19:35)
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
[2017-03-25] MEDS ORDERED: TRAM50 PO (19:36)
== END 2017-03-25 19:48 | disposition home or self-care (01) ==
LOC: PHEFT 17:57
DX: S31.114D Laceration without foreign body of abdominal wall, left lower quadrant without penetration into peritoneal cavity, subsequent encounter (principal); W45.8XXD Other foreign body or object entering through skin, subsequent encounter
CPT/HCPCS: 99281

== ENCOUNTER 2017-03-31 07:40 | Emergency (ER) | payer SELFPAY ==
[~2017-03-31] VITALS: Ht 162.6 cm; Wt 74.0 kg
[~2017-03-31 07:40] MED LIST changes: +CLIN300C5 PO; +MOBI15TA PO; -PRED5PAK2 PO; -RANI150T PO; +TRAM50 PO
[2017-03-31 07:44] VITALS: BP 136/88; PULSE 91; RESP 16; TEMP 98.5; O2SAT 100
[2017-03-31] MEDS ORDERED: NORC5TAB PO (08:14)
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
== END 2017-03-31 08:26 | disposition home or self-care (01) ==
LOC: PHED 07:40
DX: S31.109D Unspecified open wound of abdominal wall, unspecified quadrant without penetration into peritoneal cavity, subsequent encounter (principal); W39.XXXD Discharge of firework, subsequent encounter
CPT/HCPCS: 99281

== ENCOUNTER 2017-04-07 07:44 | Inpatient (IN) | payer SELFPAY ==
[~2017-04-07] VITALS: Ht 162.6 cm; Wt 74.4 kg
[~2017-04-07 07:44] MED LIST changes: -MELO15TA20 PO; -MOBI15TA PO; +NORC5TAB PO; -TRAM50 PO
[2017-04-07 07:47] VITALS: BP 128/67; PULSE 86; RESP 16; TEMP 98.4; O2SAT 99
[2017-04-07] MEDS ORDERED: MORPHINE SULFATE 2 MG/ML INJ IV PUSH ONE ×2 (08:30→10:15)
[2017-04-07] MEDS ORDERED: SODIUM CHLOR 0.9% 1000 ML INJ 1,000 ML IV ONE (08:30)
[2017-04-07] MEDS ORDERED: AMPICILLIN-SULBACTAM INJ 1,500 MG in SODIUM CHLORIDE 0.9% INJ 100 ML IV ONE (08:30)
[2017-04-07 09:12] LABS: BASOPHIL # 0.1 TH/MM3 (0-0.2); BASOPHIL % 0.9 % (0.0-2.0); EOSINOPHIL # 0.2 TH/MM3 (0-0.4); EOSINOPHIL % 1.6 % (0.0-4.0); HEMOGLOBIN 12.8 GM/DL (11.6-15.3); LYMPHOCYTE # 1.5 TH/MM3 (1.0-4.8); MEAN CELL VOLUME 90.4 FL (80.0-100.0); MEAN CORPUSCULAR HEMOGLOBIN 30.5 PG (27.0-34.0); MEAN CORPUSCULAR HGB CONC 33.8 % (32.0-36.0); MEAN PLATELET VOLUME 8.5 FL (7.0-11.0); MONO % 8.3 % (0.0-8.0); MONOCYTE # 0.8 TH/MM3 (0-0.9); NEUT % 73.2 % (16.0-70.0); PLATELET COUNT 266 TH/MM3 (150-450); RED CELL DISTRIBUTION WIDTH 13.3 % (11.6-17.2); WHITE BLOOD COUNT 9.6 TH/MM3 (4.0-11.0)
[2017-04-07] MEDS ORDERED: IOHEXOL 350 MG/ML 10 ML VIAL (for RAD DIAG) IVCONTRAST ONE (09:31)
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
[2017-04-07 09:54] LABS: ALBUMIN 3.3 GM/DL (3.4-5.0); BICARBONATE 29.6 MEQ/L (21.0-32.0); CALCIUM 8.8 MG/DL (8.5-10.1); GLUCOSE,RANDOM 94 MG/DL (74-106)
[2017-04-07 09:58] LABS: CREATININE 0.61 MG/DL (0.50-1.00); GLOMERULAR FILTRATION RATE 108 ML/MIN (>89)
[2017-04-07 09:59] LABS: TOTAL BILIRUBIN ADULT 0.4 MG/DL (0.2-1.0)
[2017-04-07 10:00] LABS: TOTAL PROTEIN 7.1 GM/DL (6.4-8.2)
[2017-04-07 10:01] LABS: ALKALINE PHOSPHATASE 75 U/L (45-117)
[2017-04-07 10:03] LABS: CHLORIDE 103 MEQ/L (98-107); SODIUM (NA) 138 MEQ/L (136-145)
[2017-04-07 10:07] LABS: ALT (GPT) 14 U/L (10-53)
[2017-04-07 10:11] LABS: AST (GOT) 14 U/L (15-37)
[2017-04-07 10:12] LABS: BLOOD UREA NITROGEN 8 MG/DL (7-18)
[2017-04-07] MEDS ORDERED: VANCOMYCIN 1 GM/200 ML INJ 200 ML IV ONE (10:15)
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
[2017-04-07] MEDS ORDERED: VANCOMYCIN 1,000 MG/NS 250 ML IV ONE ×2 (10:30)
[2017-04-07] MEDS ORDERED: ONDANSETRON HCL 4 MG/2 ML VIAL IVP PRN (10:45)
[2017-04-07] MEDS ORDERED: SODIUM CHLORIDE 0.9% FLUSH 10 ML FLUSH IV FLUSH PRN (10:45)
[2017-04-07] MEDS ORDERED: NALOXONE HCL 0.4 MG/ML AMP IV PUSH PRN (10:45)
[2017-04-07 10:58] VITALS: BP 131/71; PULSE 83; RESP 16; O2SAT 100
[2017-04-07] MEDS: SODIUM CHLOR 0.9% 1000 ML INJ 1,000 ML IV SCH ×2 (11:50→20:43)
[2017-04-07 12:49] VITALS: BP 124/66; PULSE 79; O2SAT 100
[2017-04-07 13:45] VITALS: BP 125/70; PULSE 73; O2SAT 100
[2017-04-07] MEDS ORDERED: oxyCODONE/ACETAMINOPHEN 5 MG/325 MG TAB PO PRN (14:00)
[2017-04-07] MEDS ORDERED: Vancomycin Consult Pharmacy 1 EA OTHER SCH (14:00)
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
[2017-04-07 16:00] VITALS: BP 127/73; PULSE 82; RESP 20; TEMP 99.2; O2SAT 99
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
[2017-04-07] MEDS: oxyCODONE/ACETAMINOPHEN 5 MG/325 MG TAB PO PRN ×2 (19:44→23:54)
[2017-04-07 20:00] VITALS: BP 123/76; PULSE 83; RESP 18; TEMP 97.5; O2SAT 100
[2017-04-07] MEDS: SODIUM CHLORIDE 0.9% FLUSH 10 ML FLUSH IV FLUSH SCH (21:59)
[2017-04-07] MEDS: VANCOMYCIN 1,000 MG/NS 250 ML IV SCH ×2 (22:00)
[2017-04-07] MEDS ORDERED: VANCOMYCIN INJ 1,000 MG in SODIUM CHLOR 0.9% 250 ML INJ 250 ML IV SCH (23:00)
[2017-04-08 00:14] VITALS: BP 119/73; PULSE 72; RESP 16; TEMP 97.1; O2SAT 98
[2017-04-08 04:22] VITALS: BP 118/82; PULSE 65; RESP 18; TEMP 97.4; O2SAT 99
[2017-04-08] MEDS: MORPHINE SULFATE 2 MG/ML INJ IV PUSH PRN ×6 (04:26→20:15)
[2017-04-08 06:24] LABS: AUTOMATED NEUTROPHIL # 3.2 TH/MM3 (1.8-7.7); BASOPHIL % 0.5 % (0.0-2.0); EOSINOPHIL # 0.2 TH/MM3 (0-0.4); EOSINOPHIL % 2.7 % (0.0-4.0); HEMATOCRIT 36.8 % (35.0-46.0); HEMOGLOBIN 11.9 GM/DL (11.6-15.3); LYMPH % 30.3 % (9.0-44.0); LYMPHOCYTE # 1.7 TH/MM3 (1.0-4.8); MEAN CELL VOLUME 91.5 FL (80.0-100.0); MEAN CORPUSCULAR HEMOGLOBIN 29.6 PG (27.0-34.0); MEAN CORPUSCULAR HGB CONC 32.3 % (32.0-36.0); MEAN PLATELET VOLUME 9.2 FL (7.0-11.0); MONO % 8.8 % (0.0-8.0); MONOCYTE # 0.5 TH/MM3 (0-0.9); NEUT % 57.7 % (16.0-70.0); PLATELET COUNT 247 TH/MM3 (150-450); RED BLOOD COUNT 4.03 MIL/MM3 (4.00-5.30); RED CELL DISTRIBUTION WIDTH 13.4 % (11.6-17.2); WHITE BLOOD COUNT 5.6 TH/MM3 (4.0-11.0)
[2017-04-08 06:39] LABS: CALCIUM 8.1 MG/DL (8.5-10.1)
[2017-04-08 06:40] LABS: BICARBONATE 29.1 MEQ/L (21.0-32.0)
[2017-04-08 06:42] LABS: CREATININE 0.46 MG/DL (0.50-1.00)
[2017-04-08] MEDS: SODIUM CHLOR 0.9% 1000 ML INJ 1,000 ML IV SCH ×2 (06:43→16:42)
[2017-04-08] MEDS: SODIUM CHLORIDE 0.9% FLUSH 10 ML FLUSH IV FLUSH SCH ×2 (07:52→20:16)
[2017-04-08 08:00] VITALS: BP 108/74; PULSE 61; RESP 18; TEMP 97.5; O2SAT 100
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
[2017-04-08] MEDS: VANCOMYCIN 1,000 MG/NS 250 ML IV SCH ×4 (10:00→22:10)
[2017-04-08 12:48] VITALS: PULSE 82
--- NOTE | 2017-04-08 13:58 | HHI.PR ---
Immediate Post Op Note Procedure Date: Apr 08, 2017 Pre Op Diagnosis: left groin abscess/hematoma Post Op Diagnosis: same Surgeon: Biju Atkins MD Belt Picker(s): none Procedure: I and D of left groin with vac placement Findings: organized hematoma with serous fluid and abscess Complications: none Specimen(s) removed: fluid sent for cx Anesthesia: General Drains: Hemovac Patient to: PACU Patient Condition: Good Biju Atkins MD Apr 08, 2017 13:58
[2017-04-08 16:00] VITALS: BP_SYST 128; BP_SYST 141; BP_DIAS 72; BP_DIAS 73; PULSE 68; PULSE 82; RESP 16; RESP 18; TEMP 97.1; O2SAT 99
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
[2017-04-08 20:00] VITALS: BP 135/70; PULSE 80; RESP 20; TEMP 98; O2SAT 97
[2017-04-08] MEDS ORDERED: PHARMACY ORDERED LAB ONE (21:45)
[2017-04-08] MEDS: oxyCODONE/ACETAMINOPHEN 5 MG/325 MG TAB PO PRN (21:54)
[2017-04-09] VITALS: BP 109/65; PULSE 74; RESP 18; TEMP 96.6; O2SAT 98
[2017-04-09] MEDS: MORPHINE SULFATE 2 MG/ML INJ IV PUSH PRN ×4 (03:51→20:01)
[2017-04-09] MEDS: SODIUM CHLOR 0.9% 1000 ML INJ 1,000 ML IV SCH ×3 (04:04→22:58)
[2017-04-09] MEDS: oxyCODONE/ACETAMINOPHEN 5 MG/325 MG TAB PO PRN ×4 (06:31→22:12)
[2017-04-09 08:00] VITALS: BP 116/78; PULSE 60; RESP 16; TEMP 98.9; O2SAT 97
[2017-04-09] MEDS: VANCOMYCIN INJ 1,250 MG in SODIUM CHLOR 0.9% 250 ML INJ 250 ML IV SCH ×2 (09:43→22:12)
[2017-04-09] MEDS: SODIUM CHLORIDE 0.9% FLUSH 10 ML FLUSH IV FLUSH SCH ×2 (09:44→21:47)
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
[2017-04-09] MEDS ORDERED: MAGNESIUM HYDROXIDE SUSP 30 ML CUP PO PRN (13:00)
[2017-04-09] MEDS: DOCUSATE SODIUM 100 MG CAP PO SCH ×2 (14:28→21:00)
--- NOTE | 2017-04-09 14:46 | HHI.PR ---
Subjective Subjective Notes pain controlled, no fevers Objective Vitals/I&O Vital Signs Date Time Temp Pulse Resp B/P (MAP) Pulse Ox O2 Delivery O2 Flow Rate FiO2 04/09/17 14:38 18 04/09/17 08:00 98.9 60 116/78 (91) 97 04/08/17 13:30 Room Air Labs Laboratory Tests Test 04/08/17 22:00 Vancomycin Level Trough 6.8 Date/Time Source Procedure Growth Status 04/07/17 09:15 Blood Peripheral Aerobic Blood Culture - Preliminary NO GROWTH IN 2 DAYS Resulted 04/07/17 09:15 Blood Peripheral Anaerobic Blood Culture - Preliminary NO GROWTH IN 2 DAYS Resulted 04/08/17 12:35 Fluid Other Fungal Smear - Final NO FUNGAL ELEMENTS SEEN. Resulted 04/08/17 12:35 Fluid Other Fungal Culture Pending Resulted 04/07/17 08:50 Wound Hip Gram Stain - Final Complete 04/07/17 08:50 Wound Culture - Final S. Aureus Mrsa Complete Radiology Last [address] 04/07/17 0000 Signed Impressions: Service Date/Time: Friday, April 07, 2017 09:18 - CONCLUSION: 10.5 x 9.3 x 4.0 cm subcutaneous fluid collection anterior left hip just within superficial skin sutures or rafaela. Armando Crane MD Extremities: Other (left groin with vac good seal serosang) A/P Assessment and Plan s/p i and d of left groin with vac PLAN vac change friday, consider replacement vs wet to dry pain control reg diet ok for dvt ppx tomorrow Biju Atkins MD Apr 09, 2017 14:46
[2017-04-09 16:00] VITALS: BP_SYST 122; BP_SYST 128; BP_DIAS 79; BP_DIAS 83; PULSE 74; PULSE 84; RESP 16; TEMP 97.7; TEMP 99; O2SAT 97; O2SAT 98
[2017-04-09 20:00] VITALS: BP 120/67; PULSE 81; RESP 17; TEMP 97.2; O2SAT 99
[2017-04-10] VITALS: BP 122/71; PULSE 85; RESP 19; TEMP 97.6; O2SAT 98
[2017-04-10] MEDS: MORPHINE SULFATE 2 MG/ML INJ IV PUSH PRN ×2 (00:02→04:53)
[2017-04-10] MEDS: oxyCODONE/ACETAMINOPHEN 5 MG/325 MG TAB PO PRN ×5 (02:30→20:51)
[2017-04-10 08:00] VITALS: BP 151/90; PULSE 73; RESP 16; TEMP 97.2; O2SAT 98
[2017-04-10] MEDS: SODIUM CHLORIDE 0.9% FLUSH 10 ML FLUSH IV FLUSH SCH (08:04)
[2017-04-10] MEDS: SODIUM CHLOR 0.9% 1000 ML INJ 1,000 ML IV SCH (09:05)
[2017-04-10] MEDS: DOCUSATE SODIUM 100 MG CAP PO SCH ×2 (09:06→21:06)
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
[2017-04-10 12:00] VITALS: BP 119/76; PULSE 74; RESP 16; TEMP 96.9; O2SAT 100
[2017-04-10] MEDS: DOXYCYCLINE HYCLATE 100 MG TAB PO SCH ×2 (13:15→21:06)
[2017-04-10 16:00] VITALS: BP 125/77; PULSE 82; RESP 16; TEMP 97.4; O2SAT 100
[2017-04-10 20:00] VITALS: BP 123/79; PULSE 77; RESP 18; TEMP 97.4; O2SAT 99
[2017-04-10] MEDS: LACTOBACILLUS ACIDOPHILUS TAB PO SCH (21:06)
[2017-04-10] MEDS ORDERED: diphenhydrAMINE HCL 25 MG CAP PO ONE (21:10)
[2017-04-10] MEDS ORDERED: PHARMACY ORDERED LAB ONE (21:45)
[2017-04-11] MEDS: oxyCODONE/ACETAMINOPHEN 5 MG/325 MG TAB PO PRN ×6 (00:58→21:11)
[2017-04-11 04:00] VITALS: BP 125/86; PULSE 75; RESP 18; TEMP 97.2; O2SAT 99
[2017-04-11 08:00] VITALS: BP 137/77; PULSE 61; RESP 16; TEMP 98.3; O2SAT 100
--- NOTE | 2017-04-11 09:16 | PD.WCN.NOT ---
Wound Consult Description: Wound consult ordered by for Left groin area Communicated with: Ivonne CRUZ 3rd Floor [facility], Neg Pressure Wound Therapy Wound Location Wound Location: Wound consult ordered by for Left groin area Wound Description Length: 2.0cm Width: 7.0cm Depth: ~2.3cm Wound bed appearance: Beefy red 50% granular tissue present 40% pink epithelial tissue 10% fascia. Periwound appearance: Unremarkable Settings Suction: 125 mmHg, Continuous Intensity: Low Other Information: Bridged, Windowpaned, Mushroomed Foam type: Black Number of pieces: 2 Additonal Information Patient was seen today on 3rd floor [facility] by engineering writer and .Patient alert in bed presently has no complaint of pain.Hemo VAC removed without difficulty to Left Groin surgical wound .Cleansed with normal saline pat dry.Wound presents with 50% beefy red granular tissue 40% pink epithelial tissue and 10% fascia.Moderate serosanguineous drainage noted with no odor present.Wound edges well defined with 3 intact suture noted to distal end of Oval wound.No erythema noted to andreina wound.Andreina wound is dry intact.Skin prep applied to andreina wound window paned and bridge to anterior left hip.Single piece of black sponge applied to wound base making contact with all healthy tissue.Vac applied at 125mmHg low continuous suction.Adaptic applied to sutures and Fascia prior to sponge placement.VAC to be changed every M-W-F. Isidoro Burton [facility] Apr 11, 2017 09:16
[2017-04-11] MEDS: DOXYCYCLINE HYCLATE 100 MG TAB PO SCH ×2 (09:37→21:11)
[2017-04-11] MEDS: LACTOBACILLUS ACIDOPHILUS TAB PO SCH ×2 (09:37→21:11)
[2017-04-11] MEDS: DOCUSATE SODIUM 100 MG CAP PO SCH ×2 (09:37→21:11)
--- NOTE | 2017-04-11 10:19 | HHI.FF ---
Face to Face Verification Diagnosis: (1) Wound infection Home Health Nursing Order: Medical education Wound care and dressing changes I have seen patient Chen Angelo on 04/11/17. My clinical findings support the need for the requested home health care services because: Ltd mobility - disease progression I certify that my clinical findings support that this patient is homebound because: Unsteady gait/balance Jesi Stallings MD Apr 11, 2017 10:19
--- NOTE | 2017-04-11 11:24 | HHI.PR ---
Subjective Subjective Notes no fevers, groin pain controlled, vac with good sxn Objective Vitals/I&O Vital Signs Date Time Temp Pulse Resp B/P (MAP) Pulse Ox O2 Delivery O2 Flow Rate FiO2 04/11/17 08:00 98.3 61 16 137/77 (97) 100 04/08/17 13:30 Room Air Labs Date/Time Source Procedure Growth Status 04/07/17 09:15 Blood Peripheral Aerobic Blood Culture - Preliminary NO GROWTH IN 4 DAYS Resulted 04/07/17 09:15 Blood Peripheral Anaerobic Blood Culture - Preliminary NO GROWTH IN 4 DAYS Resulted 04/08/17 12:35 Fluid Other Fungal Smear - Final NO FUNGAL ELEMENTS SEEN. Resulted 04/08/17 12:35 Fluid Other Fungal Culture Pending Resulted 04/07/17 08:50 Wound Hip Gram Stain - Final Complete 04/07/17 08:50 Wound Culture - Final S. Aureus Mrsa Complete Radiology Last [address] 04/07/17 0000 Signed Impressions: Service Date/Time: Friday, April 07, 2017 09:18 - CONCLUSION: 10.5 x 9.3 x 4.0 cm subcutaneous fluid collection anterior left hip just within superficial skin sutures or rafaela. Armando Crane MD Extremities: Other (left groin good granulation tissues, vac replaced) A/P Assessment and Plan s/p i and d of left groin with vac PLAN vac change today, pt can d/c home, will plan to remove vac on friday in the office po abx pain control reg diet ok for dvt ppx Biju Atkins MD Apr 11, 2017 11:24
[2017-04-11] MEDS ORDERED: LACT PO (11:55)
[2017-04-11] MEDS ORDERED: DOXY100T PO (11:55)
--- NOTE | 2017-04-11 11:58 | HHI.DCPOC ---
Discharge Care Plan Diagnosis: (1) Wound infection Goals to Promote Your Health * To prevent worsening of your condition and complications * To maintain your health at the optimal level Directions to Meet Your Goals Take your medications as prescribed Follow your dietary instruction Follow activity as directed Keep your appointments as scheduled Take your immunizations and boosters as scheduled If your symptoms worsen call your PCP, if no PCP go to Urgent Care Center or Emergency Room Smoking is Dangerous to Your Health. Avoid second hand smoke Call the 24-hour hour crisis hotline for domestic abuse at Quinten Garcia Apr 11, 2017 11:58
[2017-04-11 12:00] VITALS: BP 121/75; PULSE 77; RESP 16; TEMP 98.2; O2SAT 100
[2017-04-11] MEDS ORDERED: PERC5TAB12 PO (12:03)
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
[2017-04-11 20:00] VITALS: BP 128/78; PULSE 81; RESP 20; TEMP 98; O2SAT 100
[2017-04-11] MEDS ORDERED: diphenhydrAMINE HCL 25 MG CAP PO ONE (20:30)
[2017-04-12] VITALS: BP 113/69; PULSE 62; RESP 20; TEMP 97.5; O2SAT 99
[2017-04-12] MEDS: oxyCODONE/ACETAMINOPHEN 5 MG/325 MG TAB PO PRN ×2 (01:31→06:26)
[2017-04-12 08:00] VITALS: BP 133/71; PULSE 68; RESP 18; TEMP 98.2; O2SAT 100
[2017-04-12] MEDS: DOCUSATE SODIUM 100 MG CAP PO SCH (08:27)
[2017-04-12] MEDS: LACTOBACILLUS ACIDOPHILUS TAB PO SCH (08:27)
[2017-04-12] MEDS: DOXYCYCLINE HYCLATE 100 MG TAB PO SCH (08:27)
[2017-04-12] MEDS ORDERED: LIDOCAINE HCL 1% PF 5 ML AMPULE OTHER ONE (12:00)
[2017-04-12] MEDS ORDERED: ONDANSETRON HCL 4 MG/2 ML VIAL IV PUSH ONE (12:00)
[2017-04-12] MEDS ORDERED: PROPOFOL 200 MG/20 ML AMP IV ONE (12:00)
[2017-04-12] MEDS ORDERED: DEXAMETHASONE SOD PHOS 4 MG/ML VIAL IV ONE (12:00)
== END 2017-04-12 10:04 | disposition home health service (06) | DRG 572 ==
LOC: PHED 07:44 → PHEDA 10:18 → PH3A 16:17
PROVIDERS: ADMIT Hospitalist; ATTEND Hospitalist
PROC: 0H9AXZZ Drainage of Inguinal Skin, External Approach (ICD-10-PCS; 2017-04-08)
PROC: 2W13X6Z Compression of Abdominal Wall using Pressure Dressing (ICD-10-PCS; 2017-04-08)
PROC: 0JB80ZZ Excision of Abdomen Subcutaneous Tissue and Fascia, Open Approach (ICD-10-PCS; principal; 2017-04-08 12:07)
DX: L03.314 Cellulitis of groin (principal); B95.62 Methicillin resistant Staphylococcus aureus infection as the cause of diseases classified elsewhere; L02.214 Cutaneous abscess of groin; S31.104D Unspecified open wound of abdominal wall, left lower quadrant without penetration into peritoneal cavity, subsequent encounter; W39.XXXD Discharge of firework, subsequent encounter; K59.00 Constipation, unspecified
CPT/HCPCS: 72193; 80048; 80053; 80202; 83605; 84703; 85025; 85610; 86403; 87015; 87040; 87070; 87102; 87116; 87147; 87186; 87205; 87206; 96361; 96365; 96375; J0295; J1100; J2270; J2405; J3010; J3370; J7030; J7050; Q9967

== ENCOUNTER 2017-04-22 08:32 | Emergency (ER) | payer OTHER ==
[~2017-04-22] VITALS: Ht 162.6 cm; Wt 72.0 kg
[~2017-04-22 08:32] MED LIST changes: -CLIN300C5 PO; +DOXY100T PO; +LACT PO; -NORC5TAB PO; +PERC5TAB12 PO
[2017-04-22 08:44] VITALS: BP 128/63; PULSE 86; RESP 16; TEMP 99.2; O2SAT 98
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
[2017-04-22] MEDS ORDERED: oxyCODONE/ACETAMINOPHEN 5 MG/325 MG TAB PO ONE (10:00)
== END 2017-04-22 10:50 | disposition home or self-care (01) ==
LOC: PHED 08:32
DX: S71.112A Laceration without foreign body, left thigh, initial encounter (principal); Z87.442 Personal history of urinary calculi; Z88.2 Allergy status to sulfonamides; Z88.8 Allergy status to other drugs, medicaments and biological substances; Z79.899 Other long term (current) drug therapy
CPT/HCPCS: 99283

== ENCOUNTER 2017-05-13 11:29 | Emergency (ER) | payer SELFPAY ==
[~2017-05-13] VITALS: Ht 162.6 cm; Wt 73.0 kg
[2017-05-13 11:39] VITALS: BP 169/70; PULSE 76; RESP 20; TEMP 99.5; O2SAT 100
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
--- NOTE | 2017-05-13 12:49 | PD ---
Physical Exam Date Seen by Provider: May 13, 2017 Time Seen by Provider: 12:15 Narrative I, Dr. Maria, have reviewed the advance practice practitioner's documentation and am in agreement, met with the patient face to face, made the diagnosis, and the medical decision making was done by me. *My assessment and Findings: Patient seen and evaluated with PA, please see PA note for further details. She wanted to be evaluated for her left inguinal wound which surgery had taken care off, is supposed to follow-up with Dr. Atkins in 1 week. It appears that the wound is healing well, I do not see significant drainage at this time. No signs of surrounding erythema. My plan would be to release her with follow-up to general surgery regarding this wound, call Dr. Atkins's office. Return for any signs of worsening in drainage, pain, new symptoms as needed. Data Data Last Documented VS Vital Signs Date Time Temp Pulse Resp B/P (MAP) Pulse Ox O2 Delivery O2 Flow Rate FiO2 05/13/17 11:39 99.5 76 20 169/70 (103) 100 Orders Orders Wound Culture And Gram Stain (05/13/17 12:05) Ed Discharge Order (05/13/17 12:18) Wound Care (05/13/17 12:18) C Diff Toxin Pcr (05/13/17 12:35) Labs Laboratory Tests Test 05/13/17 12:40 [facility] Medical Record Reviewed: Yes Supervised Visit with KELSEY: Yes Diagnosis Primary Impression: Encounter for wound re-check Referrals: Biju Atkins MD call for appointment Patient Instructions: General Instructions, Chronic Wound Care (GEN) Departure Forms: Tests/Procedures Additional Instruction: Follow-up with Dr. Atkins on Friday as scheduled or sooner if possible. Continue wound care as instructed by your surgeon. Return to the emergency department if symptoms get worse. Scripts No Active Prescriptions or Reported Meds Disposition: DISCHARGE HOME Condition: Stable Buzz Maria MD May 13, 2017 12:49
== END 2017-05-13 13:18 | disposition home or self-care (01) ==
LOC: PHEFT 11:29
DX: Z48.817 Encounter for surgical aftercare following surgery on the skin and subcutaneous tissue (principal); A04.72 Enterocolitis due to Clostridium difficile, not specified as recurrent
CPT/HCPCS: 87070; 87205; 87493; 99283